=== PATIENT | male | born 1995 | race Caucasian/White ===

== ENCOUNTER 2016-12-14 16:15 | Emergency (ER) | payer OTHER ==
[2016-12-14 16:26] VITALS: BP 102/51
--- NOTE | 2016-12-14 16:53 | UC ---
Skin Complaint HPI - HPI Summary HPI Summary: Patient presents with abscess to the posterior knee which has been present x 2 days. He states he had something similar in his right groin several months ago , but was able to drain it and the area improved. Today, he notes to worsening abscess with surrounding erythema and a red streak which is traveling up the inner thigh since this morning. He has not attempted to drain the abscess. Denies fevers, chills, sweats. Endorses achiness in his right leg since onset of abscess. Denies calf pain. - History of Current Complaint Chief Complaint: UCSkin Time Seen by Provider: 12/14/16 16:30 Stated Complaint: SKIN COMPLAINT Hx Obtained From: Patient Onset/Duration: Gradual Onset Skin Exposure Onset/Duration: Days Ago Onset Severity: Moderate Current Severity: Moderate Pain Intensity: 8 Pain Scale Used: 0-10 Numeric Location: Discrete - posterior right knee Character: Redness, Raised, Painful Aggravating: Touch Alleviating: Nothing Associated Signs & Symptoms: Positive: Red Streaks - Allergy/Home Medications Allergies/Adverse Reactions: Allergies Allergy/AdvReac Type Severity Reaction Status Date / Time No Known Allergies Allergy Verified 12/14/16 16:26 Home Medications: Home Medications Ibuprofen TAB* [Advil TAB*] 600 mg PO Q6H PRN 12/14/16 [History Confirmed ] Review of Systems Constitutional: Negative Skin: Other - 2X2 indurated area to the posterior right knee without fluctuance. Surrounding erythema with 1 streak traveling up the right medial thigh. Respiratory: Negative Cardiovascular: Negative Genitourinary: Negative Motor: Negative Neurovascular: Negative Musculoskeletal: Myalgia - leg pain on ipsilateral side of abscess Neurological: Negative Psychological: Negative All Other Systems Reviewed And Are Negative: Yes PMH/Surg Hx/FS Hx/Imm Hx Previously Healthy: Yes - Surgical History Surgical History: Yes Surgery Procedure, Year, and Place: NASAL FX REDUCTION - Family History Known Family History: Positive: Unknown - Social History Occupation: Employed Full-time Lives: With Family Alcohol Use: Rare Alcohol Amount: ONLY [place] Substance Use Type: None Substance Use Comment - Amount & Last Used: On Thursday Smoking Status (MU): Light Every Day Tobacco Smoker Type: Cigarettes Amount Used/How Often: 4-5 CIGS/DAY, 5 YRS Length of Time of Smoking/Using Tobacco: 7 YRS Have You Smoked in the Last Year: No When Did the Patient Quit Smoking/Using Tobacco: 04/10/15 - Immunization History Most Recent Influenza Vaccination: unknown Most Recent Tetanus Shot: 2012 Most Recent Pneumonia Vaccination: NA Physical Exam Triage Information Reviewed: Yes Appearance: Well-Appearing, No Pain Distress, Well-Nourished Vital Signs: Initial Vital Signs Temp 98.1 F 12/14/16 16:19 Pulse 62 12/14/16 16:19 Resp 20 12/14/16 16:19 BP 102/51 12/14/16 16:19 Pulse Ox 100 12/14/16 16:19 Eyes: Positive: Conjunctiva Clear, Conjunctiva Inflamed Neck exam: Normal Neck: Positive: Supple, No Lymphadenopathy Respiratory Exam: Normal Respiratory: Positive: Chest non-tender, Lungs clear Cardiovascular Exam: Normal Cardiovascular: Positive: RRR Musculoskeletal Exam: Normal Musculoskeletal: Positive: Strength Intact Neurological Exam: Normal Neurological: Positive: Alert Psychological: Positive: Normal Response To Family, Age Appropriate Behavior Skin: Positive: Other - 2X2 indurated area to the posterior right knee without fluctuance. Surrounding erythema with 1 streak traveling up the right medial thigh. Course/Dx - Course Course Of Treatment: 2X2 indurated area to the posterior right knee without fluctuance. Surrounding erythema with 1 streak traveling up the right medial thigh. Area is indurated but without fluctuance. Treatment options explained. Keflex prescribed. Explained the abscess is not large enough or deep enough for drainage, but will treat for surrounding cellulitis. Return precautions given. Patient agrees to follow up if symptoms become worse and go to the ED. - Differential Diagnoses - Skin Complaint Differential Diagnoses: Abscess, Cellulitis, MRSA - Diagnoses Provider Diagnoses: Cellulitis; Skin Abscess Discharge - Discharge Plan Condition: Stable Disposition: HOME Prescriptions: Cephalexin CAP* [Keflex CAP*] 500 mg PO QID #28 cap MDD 4 Patient Education Materials: Cellulitis (ED), Abscess (ED) Referrals: Sujata Meier MD [Primary Care Provider] - Additional Instructions: Take 2 tabs now, then 1 tab before bed. Starting tomorrow take 1 tab four times daily until gone DO NOT MISS A DOSE OR STOP TAKING THE MEDICATION DESPITE SYMPTOM RELIEF Ibuprofen or Tylenol for symptoms relief. If you develop worsening redness, warmth, streaking up or down the leg or you develop a fever, go to the ED.
== END 2016-12-14 16:51 | disposition home or self-care (01) ==
LOC: UCCORT 16:15
DX: L03.115 Cellulitis of right lower limb (principal); B95.62 Methicillin resistant Staphylococcus aureus infection as the cause of diseases classified elsewhere
CPT/HCPCS: 99212; G0463

== ENCOUNTER 2016-12-15 09:45 | Emergency (ER) | payer OTHER ==
--- NOTE | 2016-12-15 10:06 | ED ---
Skin Complaint - HPI Summary HPI Summary: Patient developed an abscess on his posterior right thigh three days ago and yesterday was placed on Keflex after evaluation at [facility]. He presents today with what he feels are worsening symptoms with continued red streaking. He denies feeling ill, fever, chills. swelling or drainage from the area and has only been on ABX for 24 hours. - History of Current Complaint Chief Complaint: EDRashSkinAbscess Time Seen by Provider: 12/15/16 09:58 Stated Complaint: POSS INFECTION ON RT LEG Hx Obtained From: Patient Onset/Duration: Started Days Ago - 3, Atraumatic, Still Present Timing: Constant Onset Severity: Mild Current Severity: Mild Skin Location: Leg Character: Redness, Painful Aggravating Symptom(s): Touch Alleviating Symptom(s): Nothing Associated Signs & Symptoms: Tenderness, Red Streaks - Allergy/Home Medications Allergies/Adverse Reactions: Allergies Allergy/AdvReac Type Severity Reaction Status Date / Time No Known Allergies Allergy Verified 12/14/16 16:26 PMH/Surg Hx/FS Hx/Imm Hx Endocrine/Hematology History: Denies: Hx Diabetes, Hx Thyroid Disease Cardiovascular History: Denies: Hx Hypertension Respiratory History: Reports: Hx Asthma - Hx OF YOUNG CHILD Denies: Hx Chronic Obstructive Pulmonary Disease (COPD) GI History: Denies: Hx Ulcer Sensory History: Reports: Hx Contacts or Glasses - GLASSES Opthamlomology History: Reports: Hx Contacts or Glasses - GLASSES Neurological History: Reports: Hx Headaches - NOISE & LIGHT SENSITIVTY, Hx OF HEAD TRAUMA, Hx Migraine - Hx OF Psychiatric History: Reports: Hx Anxiety - ON DAILY MEDS, Hx Depression, Hx Inpatient Treatment, Hx Suicide Attempt, Hx of Violent Episodes Against Others, Hx Substance Abuse, Other Psychiatric Issues/Disorders - neurotic symptoms Denies: Hx Eating Disorder - Surgical History Surgery Procedure, Year, and Place: NASAL FX REDUCTION Hx Anesthesia Reactions: No Infectious Disease History: No Infectious Disease History: Denies: Hx Clostridium Difficile, Hx Hepatitis, Hx Human Immunodeficiency Virus (HIV), Hx of Known/Suspected MRSA, Hx Tuberculosis, Hx Known/Suspected VRE , Hx Known/Suspected VRSA, History Other Infectious Disease, Traveled Outside the [place] in Last 30 Days - Family History Known Family History: Positive: Unknown - Social History Occupation: Unemployed Lives: With Family Alcohol Use: Rare Alcohol Amount: ONLY [place] Substance Use Type: Reports: None Substance Use Comment - Amount & Last Used: On Thursday Smoking Status (MU): Light Every Day Tobacco Smoker Type: Cigarettes Amount Used/How Often: 4-5 CIGS/DAY, 5 YRS Length of Time of Smoking/Using Tobacco: 7 YRS Have You Smoked in the Last Year: No Cessation Counseling: Patient Advised to Stop Review of Systems Negative: Fever, Chills Positive: Other - quarter size area of puplish enduration with mild surrounding erythema and red streak that migrates proximally to mid inner thigh All Other Systems Reviewed And Are Negative: Yes Physical Exam Triage Information Reviewed: Yes Vital Signs On Initial Exam: Initial Vitals Temp Pulse Resp BP Pulse Ox 98.3 F 70 16 99/52 100 12/15/16 09:46 12/15/16 09:46 12/15/16 09:46 12/15/16 09:46 12/15/16 09:46 Vital Signs Reviewed: Yes Appearance: Positive: Well-Appearing, No Pain Distress, Thin Skin: Positive: Warm, Skin Color Reflects Adequate Perfusion, Dry, Tender, Soft , Erythema @ - quarter size area of puplish enduration with mild surrounding erythema and red streak that migrates proximally to right mid inner thigh Head/Face: Positive: Normal Head/Face Inspection Eyes: Positive: EOMI, BETTY, Conjunctiva Clear ENT: Positive: Hearing grossly normal Neck: Positive: Supple, Nontender, No Lymphadenopathy Respiratory/Lung Sounds: Positive: Breath Sounds Present Cardiovascular: Positive: RRR, Pulses are Symmetrical in both Upper and Lower Extremities Male Genital Exam: Positive: other - right groin lymphadenopathy Musculoskeletal: Negative: Edema Left, Edema Right Neurological: Positive: Sensory/Motor Intact, Alert, Oriented to Person Place, Time, NV Bundle Intact Distally, Normal Gait Psychiatric: Positive: Affect/Mood Appropriate AVPU Assessment: Alert Diagnostics - Vital Signs Vital Signs Temp Pulse Resp BP Pulse Ox 12/15/16 09:46 98.3 F 70 16 99/52 100 - Laboratory Result Diagrams: 12/15/16 10:10 12/15/16 10:10 Lab Statement: Any lab studies that have been ordered have been reviewed, and results considered in the medical decision making process. Course/Dx - Differential Diagnoses - Skin Complaint Differential Diagnoses: Abscess, Allergic Reaction, Cellulitis, Foreign Body, Local Allergic Reaction, Lymphadenitis, MRSA - Diagnoses Provider Diagnoses: Cellulitis, Inguinal adenopathy Discharge - Discharge Plan Condition: Stable Disposition: HOME Patient Education Materials: Cellulitis (ED) Referrals: Sujata Meier MD [Primary Care Provider] - Additional Instructions: Please continue to take your antibiotics until they are completely gone. Use ibuprofen 600mg three times daily with meals for the next 2-4 days to decrease swelling and pain. Follow-up with your primary care provider in 2 days for re- evaluation to insure you are improving. Return to the emergency department if symptoms worsen.
[2016-12-15] MEDS ORDERED: Ibuprofen TAB* 400 MG PO ONE (10:07)
[2016-12-15 10:24] LABS: Hematocrit 40 % (42-52); Hemoglobin 13.6 g/dl (14.0-18.0); Mean Corpuscular HGB Conc 34 g/dl (31-36); Mean Corpuscular Hemoglobin 31 pg (27-31); Mean Corpuscular Volume 91 fL (80-94); Mean Platelet Volume 9 um3 (7.4-10.4); Red Blood Count 4.36 10^6/ul (4.0-5.4); Red Cell Distribution Width 13 % (10.5-15); White Blood Count 8.6 10^3/ul (3.5-10.8)
[2016-12-15 10:40] LABS: Albumin 4.2 g/dL (3.2-5.2); BUN/Creatinine Ratio 18.3 (8-20); C Reactive Protein 6.67 mg/L (< 5.00); Calcium 9.2 mg/dL (8.6-10.3); EGFR Non-African American 119.8 (>60); Globulin 2.2 g/dL (2-4); Total Bilirubin 0.5 mg/dL (0.2-1.0); Total Protein 6.4 g/dL (6.4-8.9)
[2016-12-15 10:59] VITALS: BP 99/47
== END 2016-12-15 10:59 | disposition home or self-care (01) ==
LOC: ED 09:45
DX: L03.90 Cellulitis, unspecified (principal); R59.0 Localized enlarged lymph nodes
CPT/HCPCS: 36415; 80053; 85025; 86140; 99282; A9270-GY

== ENCOUNTER 2017-01-21 22:50 | Emergency (ER) | payer OTHER ==
[2017-01-22] MEDS ORDERED: Sulfamethox/Trimethoprim DS 800/160* TAB PO ONE (00:06)
--- NOTE | 2017-01-22 00:14 | ED ---
Skin Complaint - HPI Summary HPI Summary: 21 male presents with complaints of redness and warmth of his inner right thigh that has been ongoing for the past couple of weeks. Patient states back in November he had similar symptoms and was treated for a cellulitis with keflex for 1 week. Symptoms never completely resolved however they did get better. They began two worsen approximately 2 weeks ago and then over the last day. No history of MRSA. Denies joint aches. Denies being bit by tick. No known open laceration or cut to the area. Does not play sports. 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 NO fever/chills. Denies generalized illness and red streaking. No other complaints at this time. No rash anywhere else. No PMHx and no medications. Nothing makes better or worse. Denies being bit or stung. Does not itch. No new meds and no new products. - History of Current Complaint Chief Complaint: EDRashSkinAbscess Time Seen by Provider: 01/21/17 23:09 Stated Complaint: POSS INFECTION SPREADING IN LEGS Hx Obtained From: Patient Onset/Duration: Started Weeks Ago, Still Present, Worse Since Skin Exposure Onset/Duration: Weeks Ago Timing: Constant Current Severity: None Pain Intensity: 0 Pain Scale Used: 0-10 Numeric Skin Location: Leg - right inner thigh Character: Redness - warmth Aggravating Symptom(s): Nothing Alleviating Symptom(s): Nothing Associated Signs & Symptoms: Rash Similar Episode/Dx as: November 2016 - Allergy/Home Medications Allergies/Adverse Reactions: Allergies Allergy/AdvReac Type Severity Reaction Status Date / Time No Known Allergies Allergy Verified 01/21/17 22:57 PMH/Surg Hx/FS Hx/Imm Hx Endocrine/Hematology History: Denies: Hx Diabetes, Hx Thyroid Disease Cardiovascular History: Denies: Hx Hypertension Respiratory History: Reports: Hx Asthma - Hx OF YOUNG CHILD Denies: Hx Chronic Obstructive Pulmonary Disease (COPD) GI History: Denies: Hx Ulcer Sensory History: Reports: Hx Contacts or Glasses - GLASSES Opthamlomology History: Reports: Hx Contacts or Glasses - GLASSES Neurological History: Reports: Hx Headaches - NOISE & LIGHT SENSITIVTY, Hx OF HEAD TRAUMA, Hx Migraine - Hx OF Psychiatric History: Reports: Hx Anxiety - ON DAILY MEDS, Hx Depression, Hx Inpatient Treatment, Hx Suicide Attempt, Hx of Violent Episodes Against Others, Hx Substance Abuse, Other Psychiatric Issues/Disorders - neurotic symptoms Denies: Hx Eating Disorder - Surgical History Surgery Procedure, Year, and Place: NASAL FX REDUCTION Hx Anesthesia Reactions: No - Immunization History Immunizations Up to Date: Yes Infectious Disease History: No Infectious Disease History: Denies: Hx Clostridium Difficile, Hx Hepatitis, Hx Human Immunodeficiency Virus (HIV), Hx of Known/Suspected MRSA, Hx Tuberculosis, Hx Known/Suspected VRE , Hx Known/Suspected VRSA, History Other Infectious Disease, Traveled Outside the [place] in Last 30 Days - Family History Known Family History: Positive: Unknown - Social History Alcohol Use: Rare Alcohol Amount: ONLY [place] Substance Use Type: Reports: None Substance Use Comment - Amount & Last Used: On Thursday Smoking Status (MU): Light Every Day Tobacco Smoker Type: Cigarettes Amount Used/How Often: 4-5 CIGS/DAY, 5 YRS Length of Time of Smoking/Using Tobacco: 7 YRS Have You Smoked in the Last Year: No Review of Systems Constitutional: Negative Cardiovascular: Negative Respiratory: Negative Gastrointestinal: Negative Musculoskeletal: Negative Positive: Rash Neurological: Negative All Other Systems Reviewed And Are Negative: Yes Physical Exam Triage Information Reviewed: Yes Vital Signs On Initial Exam: Initial Vitals Temp Pulse Resp BP Pulse Ox 97.0 F 49 16 119/81 100 01/21/17 22:58 01/21/17 22:58 01/21/17 22:58 01/21/17 22:58 01/21/17 22:58 Vital Signs Reviewed: Yes Appearance: Positive: Well-Appearing, No Pain Distress, Well-Nourished Skin: Positive: Warm, Skin Color Reflects Adequate Perfusion, Dry, Erythema @ - appears to be cellulitis, non blanchable, entire medial right thigh area, non raised or swollen, warm to touch. non pruritic and no discharge or abscess appreciated. flush with skin., Other - rest of skin exam normal. Negative: Cold , Numb, Cyanosis @, Pale Head/Face: Positive: Normal Head/Face Inspection Eyes: Positive: Conjunctiva Clear ENT: Positive: Hearing grossly normal Neck: Positive: Supple, Nontender Respiratory/Lung Sounds: Positive: Clear to Auscultation, Breath Sounds Present. Negative: Rales, Rhonchi, Wheezes Cardiovascular: Positive: Normal, RRR, Pulses are Symmetrical in both Upper and Lower Extremities. Negative: Murmur, Rub Abdomen Description: Positive: Nontender, Soft Bowel Sounds: Positive: Present Musculoskeletal: Positive: Normal, Strength/ROM Intact Neurological: Positive: Normal, Sensory/Motor Intact, Alert, Oriented to Person Place, Time Psychiatric: Positive: Affect/Mood Appropriate Diagnostics - Vital Signs Vital Signs Temp Pulse Resp BP Pulse Ox 01/21/17 23:08 53 117/70 100 01/21/17 22:58 97.0 F 49 16 119/81 100 - Laboratory Lab Statement: Any lab studies that have been ordered have been reviewed, and results considered in the medical decision making process. Course/Dx - Course Course Of Treatment: due to PE findings and HPI appears to be suffering from celluilitis, due to attempting keflex and having some relief but not complete will change to Bactrim with MRSA coverage. nothing to culture. no concern for sepsis at this time. no red streaking, fever/chills or generalized feeling ill. no rash anywhere else but right medial thigh. Fluids and probiotics along with antibiotics. Follow up and re-check within 48 hours. Aware of worsening signs and symptoms to watch out for and return if occur. - Differential Diagnoses - Skin Complaint Differential Diagnoses: Abscess, Cellulitis, Local Allergic Reaction, MRSA, Tinea, Urticaria - Diagnoses Provider Diagnoses: Cellulitis of right thigh Discharge - Discharge Plan Condition: Stable Disposition: HOME Prescriptions: Sulfamethox/Trimethoprim DS* [Bactrim DS 800/160 TAB*] 1 tab PO BID #28 tab Patient Education Materials: Sulfamethoxazole/Trimethoprim (By mouth), Cellulitis (ED) Referrals: [facility] [Outside] No Primary Care Phys,NOPCP [Primary Care Provider] - Additional Instructions: Take medication as directed until entire dose is finished. If you develop worsening signs and symptoms as we discussed such as fever/chills , increasing redness, streaking, and no improvement after medicaiton in 48 hours please return and seek medical attention promptly. Keep clean and dry. Drink plenty of fluids. Probiotics or irish yogurt in between antibiotic doses. Follow up pcp.
[2017-01-22 00:35] VITALS: BP 101/58
== END 2017-01-22 00:36 | disposition home or self-care (01) ==
LOC: ED 22:50
DX: L03.115 Cellulitis of right lower limb (principal); R21 Rash and other nonspecific skin eruption
CPT/HCPCS: 99282; A9270-GY

== ENCOUNTER 2017-10-08 11:17 | Emergency (ER) | payer OTHER ==
[2017-10-08 11:49] VITALS: BP 97/56
--- NOTE | 2017-10-08 14:29 | UC ---
Complaint Male HPI - History of Current Complaint Chief Complaint: UCGU Stated Complaint: URINARY W/BACK PAIN Time Seen by Provider: 10/08/17 11:55 Pain Intensity: 0 Pain Scale Used: 0-10 Numeric - Allergies/Home Medications Allergies/Adverse Reactions: Allergies Allergy/AdvReac Type Severity Reaction Status Date / Time No Known Allergies Allergy Verified 10/08/17 11:44 PMH/Surg Hx/FS Hx/Imm Hx - Surgical History Surgical History: Yes Surgery Procedure, Year, and Place: NASAL FX REDUCTION - Family History Known Family History: Positive: Unknown - Social History Alcohol Use: Rare Alcohol Amount: ONLY [place] Substance Use Type: None Substance Use Comment - Amount & Last Used: On Thursday Smoking Status (MU): Light Every Day Tobacco Smoker Type: Cigarettes Amount Used/How Often: 4-5 CIGS/DAY Length of Time of Smoking/Using Tobacco: 7 YRS Have You Smoked in the Last Year: No When Did the Patient Quit Smoking/Using Tobacco: 04/10/15 - Immunization History Most Recent Influenza Vaccination: unknown Most Recent Tetanus Shot: 2013 Most Recent Pneumonia Vaccination: NA Physical Exam Vital Signs: Initial Vital Signs Temp 98.5 F 10/08/17 11:41 Pulse 72 10/08/17 11:41 Resp 16 10/08/17 11:41 BP 97/56 10/08/17 11:41 Pulse Ox 98 10/08/17 11:41 Discharge - Discharge Plan Condition: Stable Disposition: HOME Patient Education Materials: Urinary Incontinence (ED) Referrals: James Jacques DO [Primary Care Provider] - 7 Days Adrien Correa MD [Medical Doctor] - As Soon As Possible - Billing Disposition and Condition Condition: STABLE Disposition: HOME
== END 2017-10-08 12:15 | disposition home or self-care (01) ==
LOC: UCCORT 11:17
DX: Z87.891 Personal history of nicotine dependence (principal)
CPT/HCPCS: 81003; 99211; G0463

== ENCOUNTER 2018-07-04 14:22 | Emergency (ER) | payer OTHER ==
[2018-07-04] MEDS ORDERED: Silver Sulfadiazine 1%* 20 GM TOPICAL ONE ×3 (14:24→15:00)
--- NOTE | 2018-07-04 14:25 | UC ---
Skin Complaint HPI - HPI Summary HPI Summary: 23 yo male presents with burn to forehead sustained on 06/29. He tells me that he was at work and some deep fryer oil splashed onto his face. He has been applying a moisture cream. but is concerned about scar formation. Denies fever, drainage, or pain. - History of Current Complaint Time Seen by Provider: 07/04/18 14:24 Stated Complaint: BURN TO FORHEASD Hx Obtained From: Patient Onset/Duration: Sudden Onset Current Severity: None - Allergy/Home Medications Allergies/Adverse Reactions: Allergies Allergy/AdvReac Type Severity Reaction Status Date / Time No Known Allergies Allergy Verified 07/04/18 14:39 Home Medications: Home Medications NK [No Home Medications Reported] 07/04/18 [History Confirmed 07/04/18] PMH/Surg Hx/FS Hx/Imm Hx Psychological History: Anxiety, Depression, Other - Violent behavior - Surgical History Surgical History: Yes Surgery Procedure, Year, and Place: NASAL FX REDUCTION - Family History Known Family History: Positive: Unknown Negative: Diabetes - Social History Lives: With Family Alcohol Use: Rare Alcohol Amount: ONLY [place] Substance Use Type: None Substance Use Comment - Amount & Last Used: On Thursday Smoking Status (MU): Light Every Day Tobacco Smoker Type: Cigarettes Amount Used/How Often: 4-5 CIGS/DAY Length of Time of Smoking/Using Tobacco: 7 YRS Have You Smoked in the Last Year: No When Did the Patient Quit Smoking/Using Tobacco: 04/10/15 - Immunization History Most Recent Influenza Vaccination: unknown Most Recent Tetanus Shot: 2013 Most Recent Pneumonia Vaccination: NA Review of Systems All Other Systems Reviewed And Are Negative: Yes Constitutional: Positive: Negative Skin: Positive: Other - Burn forehead Respiratory: Positive: Negative Cardiovascular: Positive: Negative Neurological: Positive: Negative Psychological: Positive: Negative Physical Exam - Summary Physical Exam Summary: GENERAL: NAD. WDWN. No pain distress. SKIN: Forehead with superficial burn over mid to left forehead. Healed over without drainage, bleeding, or open wound. NTTP. No warmth. CHEST: No accessory muscle use. Breathing comfortably and in no distress. CV: Pulses intact. Cap refill <2seconds NEURO: Alert. PSYCH: Age appropriate behavior. Triage Information Reviewed: Yes Vital Signs: Vital Signs: Temp Pulse Resp BP Pulse Ox 98.9 F 78 16 137/71 99 07/04/18 14:40 07/04/18 14:40 07/04/18 14:40 07/04/18 14:40 07/04/18 14:40 Vital Signs Reviewed: Yes Course/Dx - Course Course Of Treatment: Dispensed silver sulfadiazine to use for one week and will refer him to dermatology to monitor potential scar formation - Diagnoses Provider Diagnosis: Burn of forehead Discharge - Sign-Out/Discharge Documenting (check all that apply): Patient Departure All imaging exams completed and their final reports reviewed: No Studies - Discharge Plan Condition: Stable Disposition: HOME Patient Education Materials: Superficial Burn (DC) Referrals: George Barriga MD [Medical Doctor] - Bladimir Blackburn MD [Medical Doctor] - As Soon As Possible Additional Instructions: If you develop a fever, shortness of breath, chest pain, new or worsening symptoms - please call your PCP or go to the ED. Please call Dermatology at the number below to schedule a follow up appointment as soon as possible. Use a thin film of the silver sulfadiazine cream once a day to your burn. - Billing Disposition and Condition Condition: STABLE Disposition: Home - Attestation Statements Provider Attestation: Per institutional requirements, I have reviewed the chart, however, I was not consulted specifically or made aware of this patient by the midlevel provider. I did not personally evaluate, interact with , or disposition this patient.
[2018-07-04 14:45] VITALS: BP 137/71
== END 2018-07-04 15:00 | disposition home or self-care (01) ==
LOC: UCEAST 14:22
DX: T20.26XA Burn of second degree of forehead and cheek, initial encounter (principal); X10.2XXA Contact with fats and cooking oils, initial encounter; Y93.G3 Activity, cooking and baking; Y92.89 Other specified places as the place of occurrence of the external cause; Y99.0 Civilian activity done for income or pay; F17.210 Nicotine dependence, cigarettes, uncomplicated
CPT/HCPCS: 99202; A9270-GY; G0463